=== PATIENT | male | born 1990 | race Caucasian/White ===

== ENCOUNTER 2017-06-24 00:10 | Inpatient (IN) | payer BC ==
[2017-06-24] MEDS ORDERED: methylPREDNISolone NA SUCC 125 MG/2 ML VIAL IVPB ONE ×2 (00:23→09:00)
[2017-06-24] MEDS ORDERED: SODIUM CHLORIDE 1,000 ML IV STA (00:23)
[2017-06-24] MEDS ORDERED: FAMOTIDINE 20 MG/50 ML IVPB 20 MG/50 ML MG IVPB ONE (00:25)
[2017-06-24] MEDS ORDERED: ALBUTEROL SO4 0.083% IH SOL 2.5 MG/3 ML VIAL.NEB. NEB ONE ×3 (00:26→01:51)
[2017-06-24] MEDS ORDERED: EPINEPHrine/PF 1 MG/1 ML (1:1,000) AMPULE SQ ONE (00:26)
[2017-06-24] MEDS ORDERED: EPINEPHrine/PF 1 MG/1 ML (1:1,000) AMPULE ONE ×2 (00:27→01:01)
[2017-06-24] MEDS ORDERED: EPINEPHrine 1:1,000 1 MG/1 ML - 30ML VIAL (INJECTION) SQ STA ×2 (00:48→01:50)
[2017-06-24 00:52] VITALS: BMI 24.4
[2017-06-24] MEDS ORDERED: DEXAMETHASONE SOD PHOSPHATE 10 MG/1 ML VIAL ONE (00:58)
[2017-06-24] MEDS ORDERED: DEXAMETHASONE SOD PHOSPHATE 10 MG/1 ML VIAL IVPUSH ONE (01:08)
--- NOTE | 2017-06-24 01:08 | PDOC ---
History of Present Illness - General Chief Complaint: Allergic Reaction Stated Complaint: SWELLING Time Seen by Provider: 06/24/17 00:24 History Source: Patient Exam Limitations: No Limitations - History of Present Illness Initial Comments: 06/24/17 01:52 Best Contact:[phone] Pmhx:None Pshx:None Allergies:Bee stings This is a 26-year-old male who presents to the emergency department complaining of an ALLERGIC reaction. Patient states that 2100 hrs. this evening he was having a turkey burger dinner. Approximately 10 minutes after finishing his burger, he felt nasal congestion followed by throat swelling/closing sensation. Patient states he did not take anything but instead came to the emergency department. Patient denies fever, chills, nausea/vomiting, facial pain lower chest pain, shortness of breath, abdominal pains. Patient states he's never had an ALLERGIC reaction to turkey burgers previously. Patient denies new food, detergent use, he seemed travels or pain in a new environment. Past History - Past Medical History Allergies/Adverse Reactions: Allergies Allergy/AdvReac Type Severity Reaction Status Date / Time bee venom protein (honey bee) Allergy Verified 06/24/17 00:33 Home Medications: Ambulatory Orders NK [No Known Home Medication] 06/24/17 COPD: No Other medical history: severe rxn to bee stings - Suicide/Smoking/Psychosocial Hx Smoking History: Never smoked Have you smoked in the past 12 months: No Information on smoking cessation initiated: No Hx Alcohol Use: No Drug/Substance Use Hx: No Review of Systems - Review of Systems Able to Perform ROS?: Yes Comments:: 06/24/17 01:54 CONSTITUTIONAL: Absent: fever, chills, diaphoresis, generalized weakness, malaise, loss of appetite HEENT: +"throat closing " sensation, +Facial swelling Absent: rhinorrhea, nasal congestion, throat pain, throat swelling, difficulty swallowing, mouth swelling, ear pain, eye pain, visual Changes CARDIOVASCULAR: Absent: chest pain, loss of consciousness, palpitations, irregular heart rate, peripheral edema RESPIRATORY: Absent: cough, shortness of breath, dyspnea with exertion, orthopnea, wheezing, stridor, hemoptysis GASTROINTESTINAL: Absent: abdominal pain, abdominal distension, nausea, vomiting, diarrhea, constipation, melena, hematochezia GENITOURINARY: Absent: dysuria, frequency, urgency, hesitancy, hematuria, flank pain, genital pain MUSCULOSKELETAL: Absent: myalgia, arthralgia, joint swelling SKIN: Absent: rash, itching, pallor HEMATOLOGIC/IMMUNOLOGIC: Absent: easy bleeding, easy bruising, lymphadenopathy, frequent infections ENDOCRINE: Absent: unexplained weight gain, unexplained weight loss, heat intolerance, cold intolerance NEUROLOGIC: Absent: headache, focal weakness or paresthesias, dizziness, unsteady gait, seizure, mental status changes, bladder or bowel incontinence PSYCHIATRIC: Absent: anxiety, depression, suicidal or homicidal ideation, hallucinations. Is the patient limited Upper Sorbian proficient: No *Physical Exam - Vital Signs Last Vital Signs Temp Pulse Resp BP Pulse Ox 97.3 F L 101 H 20 143/88 100 06/24/17 00:20 06/24/17 00:20 06/24/17 00:20 06/24/17 00:20 06/24/17 00:20 - Physical Exam Comments: 06/24/17 01:55 GENERAL: Well developed, well nourished. Awake and alert. No acute distress. HEENT: +uvula swelling/erythema Normocephalic, atraumatic. PERRLA, EOMI. No conjunctival pallor. Sclera are non- icteric. Moist mucous membranes. Oropharynx is clear. NECK: Supple. Full ROM. No JVD. Carotid pulses 2+ and symmetric, without bruits. No thyromegaly. No lymphadenopathy. CARDIOVASCULAR: Regular rate and rhythm. No murmurs, rubs, or gallops. Distal pulses are 2+ and symmetric. PULMONARY: No evidence of respiratory distress. Lungs clear to auscultation bilaterally. No wheezing, rales or rhonchi. ABDOMINAL: Soft. Non-tender. Non-distended. No rebound or guarding. No organomegaly. Normoactive bowel sounds. MUSCULOSKELETAL Normal range of motion at all joints. No bony deformities or tenderness. No CVA tenderness. EXTREMITIES: No cyanosis. No clubbing. No edema. No calf tenderness. SKIN: +Periorbital swelling Warm and dry. Normal capillary refill. No rashes. No jaundice. NEUROLOGICAL: Alert, awake, appropriate. Cranial nerves 2-12 intact. No deficits to light touch and temperature in face, upper extremities and lower extremities. No motor deficits in the in face, upper extremities and lower extremities. Normoreflexic in the upper and lower extremities. Normal speech. Toes are down- going bilaterally. Gait is normal without ataxia. PSYCHIATRIC: Cooperative. Good eye contact. Appropriate mood and affect. ED Treatment Course - LABORATORY CBC & Chemistry Diagram: 06/24/17 01:13 06/24/17 01:13 - Medications Given in the ED: ED Medications Discontinued Medications Generic Name Dose Route Start Last Admin Trade Name Frelaura PRN Reason Stop Dose Admin Albuterol Sulfate 1 amp 06/24/17 00:26 06/24/17 00:31 Ventolin 0.083% Nebulizer Soln - NEB 06/24/17 00:27 1 amp ONCE ONE Administration Epinephrine 0.3 mcg 06/24/17 00:48 06/24/17 00:51 Epinephrine 1:1,000 - SQ 06/24/17 00:49 0.3 mcg ONCE STA Administration Epinephrine HCl 0.3 mcg 06/24/17 00:26 06/24/17 00:31 Epinephrine 1:1000 P/F - SQ 06/24/17 00:27 0.3 mcg ONCE ONE Administration Progress Note - Progress Note Progress Note: 0111hrs: Called ICU/[facility] [phone] Will not admit since pt is not intubated or hypoxic 0126hrs: Microblogged Hospitalist. Will admit 0209hrs: Erika Purvis NURSE INSTRUCTOR was asked by Dr. Burt to come examine the pt. NURSE INSTRUCTOR Yaniv says she does not leave the ICU to examine patients *DC/Admit/Observation/Transfer Diagnosis at time of Disposition: Hypokalemia Allergic reaction Qualifiers: Encounter type: initial encounter Qualified Code(s): T78.40XA - Allergy, unspecified, initial encounter - Discharge Dispostion Condition at time of disposition: Guarded Admit: Yes - Referrals - Patient Instructions - Post Discharge Activity
[2017-06-24 01:52] LABS: BASO % 0.4 % (0-2.0); EOS % 2.2 % (0-4.5); HEMATOCRIT 41.2 % (35.4-49); HEMOGLOBIN 14.6 GM/dL (11.7-16.9); MCH 31.7 pg (25.7-33.7); MCHC 35.3 g/dl (32.0-35.9); MEAN CELL VOLUME 89.9 fl (80-96); MEAN PLT VOLUME 7.2 fl (7.5-11.1); NEUT % 61.4 % (42.8-82.8); PLATELET COUNT 249 K/MM3 (134-434); RBC 4.59 M/mm3 (4.00-5.60); RDW 13.1 % (11.9-15.9); WHITE BLOOD COUNT 11.1 K/mm3 (4.0-10.0)
[2017-06-24 02:06] LABS: INR 1.16 (0.82-1.09); PROTHROMBIN TIME (PATIENT) 13.1 SEC (9.7-13.0)
[2017-06-24 02:16] LABS: ALBUMIN 4.2 g/dl (3.4-5.0); ANION GAP 12 (8-16); BILIRUBIN,TOTAL 0.5 mg/dL (0.2-1.0); BLOOD UREA NITROGEN 15 mg/dL (7-18); CALCIUM 8.4 mg/dL (8.5-10.1); CHLORIDE 106 mmol/L (98-107); CO2 23 mmol/L (21-32); GLUCOSE,RANDOM 133 mg/dL (74-106); SGOT/AST 14 U/L (15-37); SGPT/ALT 29 U/L (12-78); SODIUM 141 mmol/L (136-145); TOT PROT 6.8 g/dl (6.4-8.2)
[2017-06-24 02:17] LABS: ALK PHOS 56 U/L (45-117)
[2017-06-24 02:19] LABS: POTASSIUM 2.7 mmol/L (3.5-5.1)
[2017-06-24] MEDS: KCL 10 MEQ IVPB 10 MEQ/100 ML INFUS.BAG IVPB SCH ×2 (02:59→03:21)
[2017-06-24] MEDS ORDERED: KCL 10 MEQ IVPB 10 MEQ/100 ML INFUS.BAG IVPB SCH ×2 (04:00→08:30)
--- NOTE | 2017-06-24 04:11 | HP ---
CHIEF COMPLAINT: Allergic Reaction PCP: Dr. Racquel Sutton ([place]) HISTORY OF PRESENT ILLNESS: 26yo healthy M presented to the ER with signs/symptoms of an allergic reaction after ingestion of turkey burger. He felt his face and throat swell. He had difficulty breathing and trouble swallowing, but maintained his airway. In the ER, he was given Epinephrine x3, Decadron, Albuterol, Benadryl, Famotidine, and IV solumedrol 125 with much improvement. He maintained O2 sats. He still endorses some throat swelling and dypshagia, but is breathing comfortably through nose, denies SOB. He is allergic to bees, denies previous hx of food allergies. Recent Travel: Denies PAST MEDICAL HISTORY: None PAST SURGICAL HISTORY: None Social History: Smoking: None Alcohol: Recreational Drugs: None Allergies: Bee venom protein (honey bee) Allergy (Verified 06/24/17 00:33) HOME MEDICATIONS: Home Medications Medication Instructions Recorded NK [No Known Home Medication] 06/24/17 REVIEW OF SYSTEMS CONSTITUTIONAL: Absent: fever, chills, diaphoresis, generalized weakness, malaise, loss of appetite, weight change HEENT: Absent: rhinorrhea, nasal congestion, throat pain, throat swelling, difficulty swallowing, mouth swelling, ear pain, eye pain, visual changes CARDIOVASCULAR: Absent: chest pain, syncope, palpitations, irregular heart rate , lightheadedness, peripheral edema RESPIRATORY: +throat swelling Absent: cough, shortness of breath, dyspnea with exertion, orthopnea, wheezing, stridor, hemoptysis GASTROINTESTINAL:Absent: abdominal pain, abdominal distension, nausea, vomiting , diarrhea, constipation, melena, hematochezia GENITOURINARY: Absent: dysuria, frequency, urgency, hesitancy, hematuria, flank pain, genital pain MUSCULOSKELETAL: Absent: myalgia, arthralgia, joint swelling, back pain, neck pain SKIN: Absent: rash, itching, pallor HEMATOLOGIC/IMMUNOLOGIC: Absent: easy bleeding, easy bruising, lymphadenopathy, frequent infections ENDOCRINE:Absent: unexplained weight gain, unexplained weight loss, heat intolerance, cold intolerance NEUROLOGIC: Absent: headache, focal weakness or paresthesias, dizziness, unsteady gait, seizure, mental status changes, bladder or bowel incontinence PSYCHIATRIC: Absent: anxiety, depression, suicidal or homicidal ideation, hallucinations. PHYSICAL EXAMINATION Vital Signs Period Temp Pulse Resp BP Sys/Izquierdo Pulse Ox Last 24 Hr 97.3 F-99 F 101-122 18-20 119-143/50-88 99-100 GEN: AAOx3, NAD, Sitting very comfortably, nasal breathing, no acccesory muscles HEENT: PERRLA, EOmi, mild pharyngeal/uvula swelling CV: S1, S2, tachycardic rate and reg rhythm LUNG: CTABL ABD: Soft, NT, ND, normoactive BS MSK: No edema, no erythema NEURO: CN 2-12 intact, no sensation or msk deficits ASSESSMENT/PLAN: 26yo healthy M presented to the ER with anaphylaxis after ingestion of turkey burger. # Anaphylaxis -- After ingestion of turkey burger. Decreased throat swelling after meds given in ER. Will give 60 solumedrol tmrw and continue Famotidine since patient still has some swelling. Benadryl PRN. Breathing comfortably, no need ICU. Keep NPO for now. s/s eval. [place] added to allergy list. # Tachycardia -- Most likely secondary to epinephrine. Will monitor on tele, should come down gradually # Hypokalemia -- Could be from the albuterol given in ER. Will replace w/ IV KCl. Stat Mag. Repeat BMP in AM # FEN/PPx -- IVF 150cc/hr, replaced K+, NPO, TEDs # Dispo -- Admit to tele Case d/w Dr Calle & Dr Trice Hernandez MD - [email or web address] Internal Medicine Visit type - Emergency Visit Emergency Visit: Yes ED Registration Date: 06/24/17 Care time: The patient presented to the Emergency Department on the above date and was hospitalized for further evaluation of their emergent condition. - New Patient This patient is new to me today: Yes Date on this admission: 06/24/17 - Critical Care Critical Care patient: No Hospitalist Screening - Colonoscopy Questionnaire Colonoscopy Questionnaire: Colonoscopy Questionnaire - Patient: 50 - 75 years old and never had a screening colonoscopy: Unknown History of colon or rectal polyps, or CA: Unknown History of IBD, Crohn's disease or UC: Unknown History of abdominal radiation therapy as a child: Unknown - Relative: 1 with colon or rectal CA, or polyps at age 60 or younger: Unknown Colon or rectal CA diagnosed at age 45 or younger: Unknown Multiple relatives with colon or rectal CA: Unknown - Outcome: Screening Result: Negative Screen
--- NOTE | 2017-06-24 04:32 | PN ---
Teaching Attending Note Name of Resident: Simone Hernandez ATTENDING PHYSICIAN STATEMENT I saw and evaluated the patient. I reviewed the resident's note and discussed the case with the resident. I agree with the resident's findings and plan as documented. SUBJECTIVE: 26 yo M who presents to ED who presents with throat swelling/closing, after eating a turkey burger. Notes he did not take any medications at home. States his throat felt swollen, Notes he has never had a allergic reaction. He denies any fevers or chills. States after he recieved Epin, Benadryl. Medrol and Pepcid he feels much better. OBJECTIVE: Physical: VS: Vital Signs Period Temp Pulse Resp BP Sys/Izquierdo Pulse Ox Last 24 Hr 97.3 F-99 F 101-122 18-20 119-143/50-88 99-100 GEN: NAD, Resting in bed, AA0X3, Able to speak full sentences HEENT: NCAT, PERRL, Throat without erythema or exudates CARD: Stach S1, S2 RESP: CTAB ABD: BSx4, NTD to palption EXT: - C/C/E CBCD WBC 11.1 K/mm3 (4.0-10.0) H 06/24/17 01:13 RBC 4.59 M/mm3 (4.00-5.60) 06/24/17 01:13 Hgb 14.6 GM/dL (11.7-16.9) 06/24/17 01:13 Hct 41.2 % (35.4-49) 06/24/17 01:13 MCV 89.9 fl (80-96) 06/24/17 01:13 MCHC 35.3 g/dl (32.0-35.9) 06/24/17 01:13 RDW 13.1 % (11.9-15.9) 06/24/17 01:13 Plt Count 249 K/MM3 (134-434) 06/24/17 01:13 MPV 7.2 fl (7.5-11.1) L 06/24/17 01:13 CMP Sodium 141 mmol/L (136-145) 06/24/17 01:13 Potassium 2.7 mmol/L (3.5-5.1) L* 06/24/17 01:13 Chloride 106 mmol/L (98-107) 06/24/17 01:13 Carbon Dioxide 23 mmol/L (21-32) 06/24/17 01:13 Anion Gap 12 (8-16) 06/24/17 01:13 BUN 15 mg/dL (7-18) 06/24/17 01:13 Creatinine 1.0 mg/dL (0.7-1.3) 06/24/17 01:13 Creat Clearance w eGFR > 60 (>60) 06/24/17 01:13 Random Glucose 133 mg/dL (74-106) H 06/24/17 01:13 Calcium 8.4 mg/dL (8.5-10.1) L 06/24/17 01:13 Total Bilirubin 0.5 mg/dL (0.2-1.0) 06/24/17 01:13 AST 14 U/L (15-37) L 06/24/17 01:13 ALT 29 U/L (12-78) 06/24/17 01:13 Alkaline Phosphatase 56 U/L (45-117) 06/24/17 01:13 Total Protein 6.8 g/dl (6.4-8.2) 06/24/17 01:13 Albumin 4.2 g/dl (3.4-5.0) 06/24/17 01:13 CXR- No Acute process ASSESSMENT AND PLAN: 26 M who presents with throat swelling after ingestion of a [place] Burger 1.) Allergic Reaction to [place] - S/P Pepcid, Benadryl, EPi X3, Solu-Medrol - Significant improvement in edema as per, pt and ED staff - Monitor on Tele - NPO - Reassess in am 2.) Hypokalemia - Check Mg2+ - Replete 3.) Dvt Ppx - Scds Place in Obs-Tele
[2017-06-24] MEDS ORDERED: MAGNESIUM SULF 50% (8.12 MEQ/2 ML-1 GM VIAL) IVPB ONE (06:18)
[2017-06-24] MEDS ORDERED: SODIUM CHLORIDE 1,000 ML IV SCH (06:30)
[2017-06-24 07:25] LABS: HEMATOCRIT 39.7 % (35.4-49); HEMOGLOBIN 14.1 GM/dL (11.7-16.9); MCH 31.8 pg (25.7-33.7); MCHC 35.5 g/dl (32.0-35.9); MEAN CELL VOLUME 89.6 fl (80-96); MEAN PLT VOLUME 7.4 fl (7.5-11.1); PLATELET COUNT 254 K/MM3 (134-434); RBC 4.43 M/mm3 (4.00-5.60); RDW 13.3 % (11.9-15.9)
[2017-06-24 07:32] LABS: ANION GAP 11 (8-16); BLOOD UREA NITROGEN 14 mg/dL (7-18); CALCIUM 8.4 mg/dL (8.5-10.1); CHLORIDE 110 mmol/L (98-107); CO2 23 mmol/L (21-32); CREATININE 0.9 mg/dL (0.7-1.3); GLUCOSE,RANDOM 133 mg/dL (74-106); POTASSIUM 3.8 mmol/L (3.5-5.1); SODIUM 144 mmol/L (136-145)
--- NOTE | 2017-06-24 07:46 | PN ---
Physical Exam: SUBJECTIVE: Patient seen and examined. Feels much improved since yesterday. Breathing better, but still feels some throat swelling. No itching, nausea/ vomiting/diarrhea, no CP, palpitations or [place]. OBJECTIVE: Vital Signs Period Temp Pulse Resp BP Sys/Izquierdo Pulse Ox Last 24 Hr 97.3 F-99 F 101-122 18-20 119-143/50-88 99-100 GENERAL: aaox3, sitting comfortably in bed, speaking in full sentences, non- labored breathing HEENT: PERRL, EOMI, sclera anicteric, conjunctiva clear, +mild pharyngeal/uvula swelling NECK: supple, no cervical LAD LUNGS: CTAB, no wheezing, stridor or rales appreciated; no accessory muscle use HEART: tachycardia, rr, normal s1/s2, no m/r/g ABDOMEN: soft, NTND EXTREMITIES: wwp, no edema CBC, BMP 06/24/17 06:35 06/24/17 06:35 Hepatic Panel Total Bilirubin 0.5 mg/dL (0.2-1.0) 06/24/17 01:13 AST 14 U/L (15-37) L 06/24/17 01:13 ALT 29 U/L (12-78) 06/24/17 01:13 Alkaline Phosphatase 56 U/L (45-117) 06/24/17 01:13 Albumin 4.2 g/dl (3.4-5.0) 06/24/17 01:13 Active Medications Diphenhydramine HCl (Benadryl Injection -) 25 mg IVPB Q6H PRN PRN Reason: FOR ITCHING Famotidine/Sodium Chloride (Pepcid 20 Mg Premixed Ivpb -) 20 mg in 50 mls @ 100 mls/hr IVPB BID [facility] Last Admin: 06/24/17 09:03 Dose: 100 mls/hr Sodium Chloride (Normal Saline -) 1,000 mls @ 150 mls/hr IV ASDIR JN Last Admin: 06/24/17 06:40 Dose: 150 mls/hr ASSESSMENT/PLAN: 26yo young, healthy man with no significant PMH except for bee allergy who presents with anaphylaxis after eating turkey burger/frozen vegetables. #anaphylaxis, s/p Epinephrine 0.3mcg x3, Decadron 10mg, Benadryl 50mg, Solumedrol 125 IV, Famotidine -received Solumedrol 60mg this AM -Famotidine 20mg IV BID -d/c IVF NS 150cc/hr -Benadryl PRN -LAY OUT FORMER rishi mock appreciated: will start Regular diet for lunch #hypokalemia, resolved s/p KCl IV repletion with Mg repletion #Sinus tachycardia, likely 2/2 epinephrine -telemetry monitoring # FEN/PPx PO intake lytes wnl EAM/SCDs # Dispo: telemetry FULL code d/w Dr. Lisa Wiley MD PGY1 - Internal Medicine Visit type - Emergency Visit Emergency Visit: No - New Patient This patient is new to me today: Yes Date on this admission: 06/24/17 - Critical Care Critical Care patient: No
[2017-06-24] MEDS ORDERED: POTASSIUM CHLORIDE 20 MEQ in SODIUM CHLORIDE 250 ML IVPB SCH (08:15)
--- NOTE | 2017-06-24 08:50 | EKG ---
Test Reason : Blood Pressure : / mmHG Vent. Rate : 120 BPM Atrial Rate : 120 BPM P-R Int : 136 ms QRS Dur : 108 ms QT Int : 300 ms P-R-T Axes : 055 078 049 degrees QTc Int : 424 ms SINUS TACHYCARDIA INCOMPLETE RIGHT BUNDLE BRANCH BLOCK BORDERLINE ECG NO PREVIOUS ECGS AVAILABLE Confirmed by Carlyle Streeter ([id number]) on 06/24/2017 8:50:03 AM Referred By: Confirmed By:Carlyle Stereter
--- NOTE | 2017-06-24 09:47 | CONSULT ---
Admitting History and Physical - Primary Care Physician PCP: Sacha Gonzalez - Admission History of Present Illness: 26yo healthy M presented to the ER with anaphylaxis after ingestion of turkey burger. Pt reports feeling much better. He feels the sweeling is almost completely gone. No longer experiencing pharyngeal pain/swelling. 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 History - Admission Reason For Visit: ALLERGIC REACTION,HYPOKALEMIA - Diagnostics X-ray: Report Reviewed - General Mental Status: Alert and Oriented, Awake and Alert, Able to Follow Commands Attention: Intact Ability to Follow Directions: Excellent Head/Neck Control: WFL - Hearing Hearing: Normal Hearing Aide: No With Patient: No Speech Evaluation - Communication Primary Language: KAZAKH Communication: Yes: Within Normal Limits Oral Expression Ability: Yes: No Impairment - Speech Production Able to Make Needs Known: Yes: WNL Intelligibility: Yes: WNL - Speech Characteristics Voice Loudness: Normal Voice Pitch: Yes: Normal Voice Phonatory-based Quality: Yes: Normal Speech Pattern: Normal Speech Clarity: < 100% Nasal Resonance: Normal Articulation: Yes: Precise - Language/Auditory Comprehension Follows: Yes: Complex Commands - Language/Verbal Expression Able to Respond to Simple Queries: Yes: WNL Able to Communicate Wants and Needs: Yes: WNL Functional Communication Status: Yes: WNL - Memory/Perception buttermaker continuous churn Memory: Yes: WNL Short Term Memory: Yes: WNL - Swallow Evaluation/Bedside Assessment Current Nutritional Intake: NPO Oral Secretions: Yes: WFL Dentition: Yes: Adequate Facial Symmetry at Rest: Symmetrical Facial Symmetry on Retraction: Symmetrical Facial Movement: Controlled Sensation: Normal Against Resistance Opening: Normal Against Resistance Closing: Normal Pucker Lips: Normal Smile: Normal Lingual Movement: Normal, Symmetric Lingual Speed of Movement: Normal Lingual Movement Strgth Against Opposition: Normal Lingual Movement Characteristics: Normal Soft Palate Description: Abnormal Color (anterior faucial arches red. No swelling.), Normal Symmetry Hard Palate Description: Normal Color, Normal Symmetry Velopharyngeal Movement: Normal Laryngeal Elevation: WFL Laryngeal Movement: Able to Palpate Rate of Intake: WFL Bolus Size: WFL Labial Seal: WFL Chewing: WFL Oral Prep Time: WFL A-P Transit: WFL Pocketing: None Coughing/Throat Clear: No Change in Voice: No Recommendations - Speech Evaluation, Impression/Plan Impression: Swallowing WNL. Speech/cognition intact. - Dysphagia Impressions/Plan Swallowing Skills: WFL Dysphagia Impressions: No Impairment Recommendations: Other (Observe tolerance.) - Recommendations Diet Consistency: Regular Medication Administration: Whole with water Liquids: Thin Liquids
[2017-06-24] MEDS ORDERED: FAMOTIDINE 20 MG/50 ML IVPB 20 MG/50 ML MG IVPB SCH (10:00)
[2017-06-24] MEDS ORDERED: POTASSIUM CHLORIDE 10 MEQ in SODIUM CHLORIDE 100 ML IVPB ONE (10:15)
--- NOTE | 2017-06-24 16:24 | PN ---
Teaching Attending Note Name of Resident: Abbey Wiley ATTENDING PHYSICIAN STATEMENT I saw and evaluated the patient. I reviewed the resident's note and discussed the case with the resident. I agree with the resident's findings and plan as documented. SUBJECTIVE: No complaints. OBJECTIVE: Vital Signs Period Temp Pulse Resp BP Sys/Izquierdo Pulse Ox Last 24 Hr 97.3 F-99 F 90-122 18-20 119-143/50-88 99-100 HEENT: Mild edema of uvula, right posterior pharynx, airway patent HEART: S1S2, RRR LUNGS: Clear ABDOMEN: Soft, non-tender, non-distended, normal BS EXTREMITIES: No edema Laboratory Results - last 24 hr 06/24/17 06/24/17 06/24/17 01:13 01:13 01:13 WBC 11.1 H RBC 4.59 Hgb 14.6 Hct 41.2 MCV 89.9 MCH 31.7 MCHC 35.3 RDW 13.1 Plt Count 249 MPV 7.2 L Neutrophils % 61.4 Lymphocytes % 32.0 Monocytes % 4.0 Eosinophils % 2.2 Basophils % 0.4 PT with INR 13.10 H INR 1.16 H Sodium 141 Potassium 2.7 L* Chloride 106 Carbon Dioxide 23 Anion Gap 12 BUN 15 Creatinine 1.0 Creat Clearance w eGFR > 60 Random Glucose 133 H Calcium 8.4 L Magnesium Total Bilirubin 0.5 AST 14 L ALT 29 Alkaline Phosphatase 56 Total Protein 6.8 Albumin 4.2 06/24/17 06/24/17 06/24/17 03:55 04:27 06:35 WBC 11.0 H RBC 4.43 Hgb 14.1 Hct 39.7 MCV 89.6 MCH 31.8 MCHC 35.5 RDW 13.3 Plt Count 254 MPV 7.4 L Neutrophils % Lymphocytes % Monocytes % Eosinophils % Basophils % PT with INR INR Sodium Potassium 3.0 L Chloride Carbon Dioxide Anion Gap BUN Creatinine Creat Clearance w eGFR Random Glucose Calcium Magnesium 1.7 L Total Bilirubin AST ALT Alkaline Phosphatase Total Protein Albumin 06/24/17 06:35 WBC RBC Hgb Hct MCV MCH MCHC RDW Plt Count MPV Neutrophils % Lymphocytes % Monocytes % Eosinophils % Basophils % PT with INR INR Sodium 144 Potassium 3.8 D Chloride 110 H Carbon Dioxide 23 Anion Gap 11 BUN 14 Creatinine 0.9 Creat Clearance w eGFR Random Glucose 133 H Calcium 8.4 L Magnesium Total Bilirubin AST ALT Alkaline Phosphatase Total Protein Albumin Current Medications Generic Name Dose Route Start Last Admin Trade Name Freq PRN Reason Stop Dose Admin Diphenhydramine HCl 25 mg 06/24/17 06:11 Benadryl Injection - IVPB Q6H PRN FOR ITCHING Famotidine/Sodium Chloride 20 mg in 50 mls @ 100 mls/hr 06/24/17 10:00 09:03 Pepcid 20 Mg Premixed Ivpb - IVPB 100 mls/hr BID JN Administration ASSESSMENT AND PLAN: This is a 26 year old man with no significant medical history who presented to the ED with swelling of his face and throat, difficulty breathing and swallowing after eating a turkey burger. 1. Allergic reaction, possibly secondary to turkey - Improved after epinephrine, Pepcid, Benadryl, SoluMedrol 2. Hypokalemia - Improved 3. Hypomagnesemia - Given magnesium sulfate 4. Disposition - Ok for discharge home with Prednisone, Pepcid, Benadryl as needed, EpiPen
--- NOTE | 2017-06-24 16:39 | DS ---
Physical Exam: SUBJECTIVE: Patient seen and examined. Feels much improved since yesterday. Breathing better, but still feels some throat swelling. No itching, nausea/ vomiting/diarrhea, no CP, palpitations or [place]. OBJECTIVE: Vital Signs Period Temp Pulse Resp BP Sys/Izquierdo Pulse Ox Last 24 Hr 97.3 F-99 F 90-122 18-20 119-143/50-88 99-100 PHYSICAL EXAM GENERAL: aaox3, sitting comfortably in bed, speaking in full sentences, non- labored breathing HEENT: PERRL, EOMI, sclera anicteric, conjunctiva clear, +mild pharyngeal/uvula swelling NECK: supple, no cervical LAD LUNGS: CTAB, no wheezing, stridor or rales appreciated; no accessory muscle use HEART: tachycardia, rr, normal s1/s2, no m/r/g ABDOMEN: soft, NTND EXTREMITIES: wwp, no edema CBC, BMP 06/24/17 06:35 06/24/17 06:35 Hepatic Panel Total Bilirubin 0.5 mg/dL (0.2-1.0) 06/24/17 01:13 AST 14 U/L (15-37) L 06/24/17 01:13 ALT 29 U/L (12-78) 06/24/17 01:13 Alkaline Phosphatase 56 U/L (45-117) 06/24/17 01:13 Albumin 4.2 g/dl (3.4-5.0) 06/24/17 01:13 Active Medications Diphenhydramine HCl (Benadryl Injection -) 25 mg IVPB Q6H PRN PRN Reason: FOR ITCHING Famotidine/Sodium Chloride (Pepcid 20 Mg Premixed Ivpb -) 20 mg in 50 mls @ 100 mls/hr IVPB BID [facility] Last Admin: 06/24/17 09:03 Dose: 100 mls/hr Sodium Chloride (Normal Saline -) 1,000 mls @ 150 mls/hr IV ASDIR JN Last Admin: 06/24/17 06:40 Dose: 150 mls/hr HOSPITAL COURSE: Date of Admission:06/24/17 Date of Discharge: 06/24/17 Pre-Hospital Course: 26yo healthy M presented to the ER with signs/symptoms of an allergic reaction after ingestion of turkey burger/frozen vegetables. He felt his face and throat swell. He had difficulty breathing and trouble swallowing, but maintained his airway. In the ER, he was given Epinephrine x3, Decadron 10mg, Albuterol nebs, Benadryl 50mg, Famotidine, and Solumedrol 125mg IV with much improvement. He maintained O2 sats. He still endorses some throat swelling and dypshagia, but is breathing comfortably through nose, denies SOB. He is allergic to bees, denies previous hx of food allergies. Subsequent Hospital Course; Following ED treatment for anaphylaxis, patient endorsed decreased throat swelling and improved breathing. He was monitored continuously on telemetry with no significant events recorded other than sinus tachycardia, likely 2/2 to the epinephrine. Pt denied any chest pain, palpitations, or chest discomfort. He was evaluated by COMMUNICATION PROFESSOR, and was found to have no impairment of swallowing or dysphagia. Patient's diet was advanced to Regular, which he tolerated without it issue. He was continued on steroids and received Solumedrol 60mg IV today, and discharged with a 3 day course of Prednisone 60mg. Patient was also prescribed Epi-Pen, which he endorsed knowing how to use. Hypokalemia was repleted with IV KCl and was wnl by discharge. IMAGING: CXR 06/24/2017: A single view of the chest reveals clear lungs, normal mediastinum, and sharp angles. The bones and soft tissues are intact. There are no prior studies for comparison. IMPRESSION: No acute pathology. Minutes to complete discharge: 40 Discharge Summary Reason For Visit: ALLERGIC REACTION,HYPOKALEMIA Current Active Problems Allergic reaction (Acute) Hypokalemia (Acute) Condition: Improved - Instructions Diet, Activity, Other Instructions: You were admitted to the hospital for anaphylaxis after eating a turkey burger/ frozen vegetables. You were given 3 doses of Epinephrine and steroids. Your breathing has improved and the swelling in your throat has lessened. You may resume your regular daily activities. Avoid eating [place]. Make an appointment to see Dr. Hancock, an storage worker, to assess your allergies. Medications: -You were started on a 3-day course of steroids. You received 2 doses at the hospital. Your last dose will be tomorrow morning. Take Prednisone 60mg tomorrow morning (06/25). -You are prescribed an Epi-pen. Keep this with you in case you have another anaphylactic reaction. Return to the Emergency Department if you have worsening swelling in your throat , difficulty breathing or any new or concerning symptom. Referrals: Racquel Sutton [Non Staff, Medical] - Mitchel Hancock MD [Non Staff, Medical] - Disposition: HOME - Home Medications Comprehensive Discharge Medication List: Ambulatory Orders Epinephrine [Epipen] 0.3 mg IJ PRN PRN #1 auto.injct 06/24/17 Prednisone [Deltasone] 60 mg PO DAILY #3 tablet 06/24/17 This patient is new to me today: Yes Date on this admission: 06/24/17 Emergency Visit: No Critical Care patient: No - Discharge Referral Referred to [facility] Med P.C.: No
[2017-06-24 18:47] VITALS: BP 126/74; PULSE 91; TEMP 98.8
== END 2017-06-24 18:07 | disposition home or self-care (01) | DRG 916 ==
LOC: JER 00:10 → J4W 03:05
PROVIDERS: ADMIT Internal Medicine; ATTEND Internal Medicine
DX: T78.04XA Anaphylactic reaction due to fruits and vegetables, initial encounter (principal); T78.09XA Anaphylactic reaction due to other food products, initial encounter; E87.6 Hypokalemia; R00.0 Tachycardia, unspecified; E83.42 Hypomagnesemia
CPT/HCPCS: 36415; 71045-TC-FY; 80048; 80053; 83735; 84132; 85025; 85027; 85610; 93005; 93010; 99285-25; J1100; J7030